=== PATIENT | female | born 2000 | race Caucasian/White ===

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

== ENCOUNTER 2019-04-26 10:19 | Emergency (ER) | payer OTHER ==
[~2019-04-26] VITALS: Ht 154.9 cm; Wt 67.6 kg
[2019-04-26 10:32] VITALS: BP 136/76
--- NOTE | 2019-04-26 10:36 | NUR ---
ASSISTED PT TO WAIT IN THE LOBBY.
--- NOTE | 2019-04-26 11:59 | NUR ---
PT AMBULATED TO BED 11.
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
[2019-04-26 13:45] VITALS: BP 136/76
== END 2019-04-26 13:46 | disposition home or self-care (01) ==
LOC: MED 10:19
DX: S16.1XXA Strain of muscle, fascia and tendon at neck level, initial encounter (principal); S29.012A Strain of muscle and tendon of back wall of thorax, initial encounter; R03.0 Elevated blood-pressure reading, without diagnosis of hypertension; V49.40XA Driver injured in collision with unspecified motor vehicles in traffic accident, initial encounter; Y93.89 Activity, other specified; Y92.488 Other paved roadways as the place of occurrence of the external cause; Y99.8 Other external cause status
CPT/HCPCS: 72040; 81002; 81025; 99283